=== PATIENT | male | born 1960 | race Caucasian/White ===

== ENCOUNTER → 2017-11-12 07:04 | Outpatient (CLI) | payer OTHER, SELFPAY ==
[2017-11-12 10:45] LABS: AST(SGOT) 18 U/L (15-37); Alanine Aminotransfer ALT/SGPT 30 U/L (16-61); Albumin, Serum 3.6 g/dL (3.2-5.0); Alkaline Phosphatase 56 U/L (45-117); Bilirubin, Direct 0.14 mg/dL (0.00-0.30); Cholesterol 119 mg/dL (200); Globulin 3.5 g/dL (2.2-4.2); High Density Lipoprotein 34 mg/dL; Protein, Total 7.1 g/dL (6.4-8.2); Triglycerides 126 mg/dL; Very Low Density Lipoprotein 25 mg/dL (5-40)
== END ==
PROVIDERS: Family Provider Family Medicine; PCP Family Medicine; Visit Provider Physician Assistant Medical
DX: E78.5 Hyperlipidemia, unspecified (principal); Z79.899 Other long term (current) drug therapy
CPT/HCPCS: 36415; 80061; 80076

== ENCOUNTER → 2018-11-24 16:30 | Outpatient (CLI) | payer OTHER, SELFPAY ==
[2018-11-24 09:58] VITALS: BMI 27.0
[2018-11-24 17:45] LABS: AST(SGOT) 23 U/L (15-37); Alanine Aminotransfer ALT/SGPT 27 U/L (16-61); Albumin, Serum 3.8 g/dL (3.2-5.0); Alkaline Phosphatase 54 U/L (45-117); Bilirubin, Direct 0.13 mg/dL (0.00-0.30); Cholesterol 121 mg/dL (200); Globulin 3.4 g/dL (2.2-4.2); High Density Lipoprotein 30 mg/dL; Protein, Total 7.2 g/dL (6.4-8.2); Triglycerides 260 mg/dL; Very Low Density Lipoprotein 52 mg/dL (5-40)
== END ==
PROVIDERS: Family Provider Family Medicine; PCP Family Medicine; Referring Provider Internal Medicine Cardiovascular Disease; Visit Provider Internal Medicine Cardiovascular Disease
DX: I25.10 Atherosclerotic heart disease of native coronary artery without angina pectoris (principal); I25.2 Old myocardial infarction; I10 Essential (primary) hypertension; E78.5 Hyperlipidemia, unspecified; Z95.5 Presence of coronary angioplasty implant and graft
CPT/HCPCS: 36415; 80061; 80076

== ENCOUNTER → 2018-12-09 06:21 | Outpatient (CLI) | payer OTHER, SELFPAY ==
[2018-11-24 09:58] VITALS: BMI 27.0
--- NOTE | 2018-12-09 17:13 | STRESSREP ---
Stress Test Report Pharmacologic myocardial perfusion stress test. 58-year-old man with a history of chest pain. Resting EKG demonstrates normal sinus rhythm with a rate of 57 bpm normal intervals are noted resting blood pressure 122/82 mmHg. Medications: Aspirin, Plavix, lisinopril, metoprolol. The patient exercised according to regular Jordon protocol for total duration of 5 minutes and 30 seconds the maximum heart rate attained 136 bpm which was 85% of maximum predicted heart rate the maximum workload was 7 metabolic equivalents. At rest there were no ST or T wave changes noted suggest ischemia peak exercise upsloping ST changes only were noted with no meet the criteria for ischemia. No clinical angina was noted. The resting blood pressures 122/82 with a peak blood pressure 164/72 mmHg. The test was terminated due to leg fatigue. Myocardial perfusion protocol per 14.1 mCi of technetium 99m sestamibi was injected at rest. The patient exercised according to regular Jordon protocol for 7 metabolic equivalents at peak exercise 44.3 mCi of technetium 99m sestamibi was injected stress images were obtained stress and rest images were reconstructed in comparing the short axis vertical and horizontal long axis. Gated images were also obtained Perfusion SPECT analysis: Review of the stress images demonstrate normal uptake of tracer noted in all areas of myocardium. The rest images similar demonstrate normal uptake of tracer noted in all rest myocardium. No evidence of reversibility is noted suggest ischemia. Gated SPECT analysis: The gated ejection fraction is noted to be 58%. Conclusion: Normal exercise myocardial perfusion stress test at a moderate workload. Preserved ejection fraction.
== END ==
PROVIDERS: Family Provider Family Medicine; PCP Family Medicine; Referring Provider Internal Medicine Cardiovascular Disease; Visit Provider Internal Medicine Cardiovascular Disease
DX: I25.10 Atherosclerotic heart disease of native coronary artery without angina pectoris (principal); E78.00 Pure hypercholesterolemia, unspecified; Z95.5 Presence of coronary angioplasty implant and graft
CPT/HCPCS: 78452; 93017; A9500; A4216

== ENCOUNTER → 2019-03-01 10:14 | Outpatient (CLI) | payer OTHER, SELFPAY ==
[2018-11-24 09:58] VITALS: BMI 27.0
== END ==
PROVIDERS: Family Provider Family Medicine; PCP Family Medicine; Referring Provider Dermatology; Visit Provider Dermatology
DX: L92.3 Foreign body granuloma of the skin and subcutaneous tissue (principal)
CPT/HCPCS: 87070; 87205

== ENCOUNTER → 2019-11-25 16:22 | Outpatient (CLI) | payer OTHER, SELFPAY ==
[2019-11-25 15:53] VITALS: BMI 27.7
[2019-11-25 17:56] LABS: AST(SGOT) 22 U/L (15-37); Alanine Aminotransfer ALT/SGPT 26 U/L (16-61); Albumin, Serum 4.1 g/dL (3.2-5.0); Alkaline Phosphatase 62 U/L (45-117); Anion Gap 7 (5-15); BUN 14 mg/dL (7-18); Bilirubin, Direct 0.14 mg/dL (0.00-0.30); Calcium,Total 9.3 mg/dL (8.5-10.1); Chloride 103 mmol/L (98-107); Cholesterol 110 mg/dL (200); Creatinine, Serum 1.17 mg/dL (0.70-1.30); EST Glomerular Filtration Rate 67 mL/min (>60); Est Glom Filt Rate - Afr Amer 81 mL/min (>60); Globulin 3.5 g/dL (2.2-4.2); Glucose 87 mg/dL (74-106); High Density Lipoprotein 31 mg/dL; Magnesium 2.1 mg/dL (1.6-2.6); Potassium 3.8 mmol/L (3.5-5.1); Protein, Total 7.6 g/dL (6.4-8.2); Sodium Level 135 mmol/L (136-145); Triglycerides 190 mg/dL; Very Low Density Lipoprotein 38 mg/dL (5-40)
== END ==
PROVIDERS: Referring Provider Internal Medicine Cardiovascular Disease; Visit Provider Internal Medicine Cardiovascular Disease
DX: E78.5 Hyperlipidemia, unspecified (principal); I10 Essential (primary) hypertension; I25.2 Old myocardial infarction; Z95.5 Presence of coronary angioplasty implant and graft; I25.10 Atherosclerotic heart disease of native coronary artery without angina pectoris
CPT/HCPCS: 36415; 80048; 80061; 80076; 83735

== ENCOUNTER → 2020-07-11 08:35 | Outpatient (CLI) | payer OTHER, SELFPAY ==
[2020-07-11 10:17] LABS: Absolute Lymphocyte Count 2.27 X10^3/uL (0.83-4.51); Absolute Neutrophil Count 5.4 X10^3/uL (2.0-7.7); Basophil# 0.07 X10^3/uL; Basophil% 0.8 % (0-1); Eosinophil# 0.21 X10^3/uL; Eosinophils% 2.4 % (0-5); Hematocrit 46.4 % (40-54); Hemoglobin 15.3 g/dL (13.0-16.5); Lymphocyte # 2.27 X10^3/ul (4.0); Lymphocyte % 26.5 % (19-41); Mean Corpuscular Hgb 31.4 pg (27.0-32.0); Mean Corpuscular Volume 95.1 fL (80-94); Mean Platelet Vol. 10.6 fl (6.2-12.0); Monocyte# 0.58 X10^3/uL; Monocyte% 6.8 % (0-10); NRBC Flagged by Analyzer 0 % (0-5); Neutrophil # 5.42 X10^3/uL (2.7-7.7); Neutrophil % 63.2 % (47-70); Platelet Count 228 K/mm3 (150-450); RBC Distribution Width CV 12.3 % (11.6-14.6); RBC Distribution Width SD 43.1 fl (35.1-43.9); Red Blood Count 4.88 M/mm3 (4.6-6.2); White Blood Count 8.6 K/mm3 (4.4-11.0)
[2020-07-11 10:37] LABS: Vitamin B12 320 pg/mL (211-911)
[2020-07-11 10:42] LABS: ALB/GLOB Ratio 0.9 RATIO (0.9-2.4); AST(SGOT) 17 U/L (15-37); Alanine Aminotransfer ALT/SGPT 24 U/L (16-61); Albumin, Serum 3.4 g/dL (3.2-5.0); Alkaline Phosphatase 59 U/L (45-117); Anion Gap 6 (5-15); BUN 17 mg/dL (7-18); BUN/Creat Ratio 14.2 RATIO (10-20); Calcium,Total 8.7 mg/dL (8.5-10.1); Chloride 105 mmol/L (98-107); Cholesterol 102 mg/dL (200); EST Glomerular Filtration Rate 65 mL/min (>60); Est Glom Filt Rate - Afr Amer 79 mL/min (>60); Globulin 3.8 g/dL (2.2-4.2); Glucose 98 mg/dL (74-106); High Density Lipoprotein 35 mg/dL; Potassium 3.8 mmol/L (3.5-5.1); Protein, Total 7.2 g/dL (6.4-8.2); Sodium Level 137 mmol/L (136-145); Thyroid Stim Hormone (TSH) 2.36 uIU/mL (0.358-3.74); Triglycerides 76 mg/dL; Very Low Density Lipoprotein 15 mg/dL (5-40)
== END ==
PROVIDERS: PCP Family Medicine; Referring Provider Family Medicine; Visit Provider Family Medicine
DX: E78.00 Pure hypercholesterolemia, unspecified (principal); L02.31 Cutaneous abscess of buttock; R53.83 Other fatigue
CPT/HCPCS: 36415; 80053; 80061; 82306; 82607; 84443; 85025; 87070; 87075; 87186; 87205

== ENCOUNTER → 2021-03-06 14:49 | Outpatient (CLI) | payer OTHER, SELFPAY ==
--- NOTE | 2021-03-06 14:55 | ECHOD_ITS ---
Version 2 Reason For Study: HTN Procedure This was a 2D Doppler, Color Flow transthoracic echocardiogram. Exam performed in department. Left Ventricle Normal LV size. Left ventricular systolic function is normal. The estimated ejection fraction is 60 %. Stage 1 diastolic dysfunction. No regional wall motion abnormalities noted. Right Ventricle Normal RV size. Normal systolic function. Atria Normal left atrium. Normal right atrium. Mitral Valve Normal mitral valve. Tricuspid Valve Normal tricuspid valve. Aortic Valve Normal aortic valve. Trisinus/trileaflet aortic valve. Mild (1+) aortic valve insufficiency. Pulmonic Valve Normal pulmonic valve. Great Vessels Normal aortic root. The pulmonary artery is normal size. Normal inferior vena cava. Pericardium/Pleural No pericardial effusion. MMode/2D Measurements & Calculations LVIDd: 4.4 cm IVSd: 1.2 cm LA dimension: 3.0 cm LVIDs: 3.2 cm LVPWd: 1.3 cm FS: 26.5 % LAV(MOD-bp): 55.8 ml LA A4 area: 18.0 cm2 RA A4 area: 20.7 cm2 LAV(MOD-bp) Indexed: 23.7 ml/m2 LAV(MOD-sp2): 59.4 ml LAV(MOD-sp4): 47.7 ml Time Measurements MV dec time: 0.48 sec Doppler Measurements & Calculations MV E max alden: 47.9 cm/sec Lat Peak E' Alden: 6.8 cm/sec Med Peak E' Alden: 5.4 cm/sec MV A max alden: 78.9 cm/sec E/E' lat: 7.0 E/E' med: 8.9 MV E/A: 0.61 MV V2 max: 69.7 cm/sec MV P1/2t max alden: 63.3 cm/sec Ao V2 max: 179.0 cm/sec MV max P.9 mmHg MV P1/2t: 87.5 msec Ao max P.8 mmHg MV V2 mean: 38.2 cm/sec MV dec slope: 212.0 cm/sec2 MV mean P.70 mmHg MVA(P1/2t): 2.5 cm2 MV V2 VTI: 19.9 cm AI max alden: 478.8 cm/sec LV V1 max: 102.0 cm/sec PA V2 max: 83.8 cm/sec AI max P.8 mmHg LV V1 max P.2 mmHg AI dec slope: 279.1 cm/sec2 AI P1/2t: 502.4 msec ECHO/Echo Complete Interpretation Summary Normal LV size. Left ventricular systolic function is normal. The estimated ejection fraction is 60 %. Stage 1 diastolic dysfunction. Structurally normal valves. Ordering Physician: Caden Caro Referring Physician: Ha Workman Performed By: David Tristan RCS
== END ==
PROVIDERS: PCP Family Medicine; Referring Provider Internal Medicine Cardiovascular Disease; Visit Provider Internal Medicine Cardiovascular Disease
DX: I10 Essential (primary) hypertension (principal)
CPT/HCPCS: 93306

== ENCOUNTER → 2021-03-09 07:06 | Outpatient (CLI) | payer OTHER, SELFPAY ==
[2021-03-09 10:24] LABS: AST(SGOT) 24 U/L (15-37); Alanine Aminotransfer ALT/SGPT 30 U/L (16-61); Albumin, Serum 3.6 g/dL (3.2-5.0); Alkaline Phosphatase 59 U/L (45-117); Bilirubin, Direct 0.16 mg/dL (0.00-0.30); Cholesterol 111 mg/dL (200); Globulin 3.8 g/dL (2.2-4.2); High Density Lipoprotein 37 mg/dL; Protein, Total 7.4 g/dL (6.4-8.2); Triglycerides 93 mg/dL; Very Low Density Lipoprotein 19 mg/dL (5-40)
== END ==
PROVIDERS: PCP Family Medicine; Referring Provider Internal Medicine Cardiovascular Disease; Visit Provider Internal Medicine Cardiovascular Disease
DX: E78.00 Pure hypercholesterolemia, unspecified (principal)
CPT/HCPCS: 36415; 80061; 80076

== ENCOUNTER → 2021-11-13 | Outpatient (CLI) | payer BC, SELFPAY | END | disposition home or self-care (01) | LOC: LABSPEC 15:23 | PROVIDERS: PCP Family Medicine; Visit Provider Physician Assistant | DX: L72.3 Sebaceous cyst (principal); L08.9 Local infection of the skin and subcutaneous tissue, unspecified | CPT/HCPCS: 87070; 87075; 87077; 87186; 87205 ==

== ENCOUNTER → 2023-09-09 | Outpatient (CLI) | payer BC, SELFPAY ==
--- NOTE | 2023-09-09 15:03 | RAD_ITS ---
STUDY: X-RAY - RIGHT KNEE REASON FOR EXAM: Male, 63 years old. Right knee pain. TECHNIQUE: 4 views of the right knee. COMPARISON: None. FINDINGS: Normal visualized distal femur. Normal visualized proximal tibia and fibula. Normal proximal tibiofibular articulation. There is no demonstrated fracture. Normal medial femorotibial compartment. Normal lateral femorotibial compartment. Normal patellofemoral articulation. There are atherosclerotic calcifications. RAD/Knee 4 or More Views IMPRESSION: No demonstrated fracture. Electronically Signed: Benitez Farrell MD at 15:48 EDT ,
== END | disposition home or self-care (01) ==
LOC: MTRAD 14:58
PROVIDERS: PCP Family Medicine; Referring Provider Family Medicine; Visit Provider Family Medicine
DX: M25.561 Pain in right knee (principal)
CPT/HCPCS: 73564

== ENCOUNTER → 2024-01-20 | Outpatient (CLI) | payer BC, SELFPAY | END | disposition home or self-care (01) | LOC: LABSPEC 15:14 | PROVIDERS: Referring Provider Physician Assistant; Visit Provider Physician Assistant | DX: L72.3 Sebaceous cyst (principal); L08.9 Local infection of the skin and subcutaneous tissue, unspecified | CPT/HCPCS: 87070; 87075; 87077; 87186; 87205 ==

== ENCOUNTER → 2024-02-26 | Outpatient (CLI) | payer BC, SELFPAY ==
[2024-02-26 11:56] LABS: AST(SGOT) 17 U/L (15-37); Alanine Aminotransfer ALT/SGPT 25 U/L (16-61); Albumin, Serum 3.6 g/dL (3.2-5.0); Alkaline Phosphatase 70 U/L (45-117); Bilirubin, Direct 0.16 mg/dL (0.00-0.30); Cholesterol 132 mg/dL (200); Globulin 3.5 g/dL (2.2-4.2); High Density Lipoprotein 34 mg/dL; Protein, Total 7.1 g/dL (6.4-8.2); Triglycerides 122 mg/dL; Very Low Density Lipoprotein 24 mg/dL (5-40)
== END | disposition home or self-care (01) ==
PROVIDERS: Referring Provider Internal Medicine Cardiovascular Disease; Visit Provider Internal Medicine Cardiovascular Disease
DX: E78.5 Hyperlipidemia, unspecified (principal)
CPT/HCPCS: 36415; 80061; 80076

== ENCOUNTER 2024-06-01 06:22 | Day surgery (SDC) | payer BC, SELFPAY ==
--- NOTE | 2024-05-28 16:51 | PAT.ANESEVAL ---
Pre-Assessment Diagnosis/Proposed Procedure Planned Operative Procedure(s): EGD, COLONOSCOPY Anesthesia History Anesthesia History - veterinary toxicologist: Anesthesia History - veterinary toxicologist Hx Hospitalization No 05/28/24 15:31 Any Problems With Anesthesia No 05/28/24 15:31 Cholinesterase deficiency No 05/28/24 15:31 You/Your Family Experience No 05/28/24 15:31 fever (hyperthermia) with Relationship Recent Exposure to Contagious Disease Does patient have nerve No 05/28/24 15:31 stimulator Patient instructed to have device shut off --Does patient have Pacemaker or ICD? When Was Last Pacemaker Check QUESTION #4 FULL TEXT: You/Your Family Experience fever (hyperthermia) with Anesthesia Last Oral Intake Last Oral intake: Last Oral Intake NPO since Meds taken in AM with sips of water? Meds patient instructed to take am of surgery PONV PONV - veterinary toxicologist: PONV - veterinary toxicologist Female No 05/28/24 15:31 HX of Motion Sickness No 05/28/24 15:31 HX of N/V After Surgery No 05/28/24 15:31 Non-Smoker No 05/28/24 15:31 Duration of Surgery greater No 05/28/24 15:31 than 60 minutes Number of Risk Factors PONV Score Height & Weight Height & Weight: Anesthesia: Height & Weight Height 6 ft 5 in 03/31/24 13:45 Respiratory Assessment Respiratory Assessment - veterinary toxicologist: Respiratory Tract Infection Hx - veterinary toxicologist Hx Respiratory Tract Infection No 05/28/24 15:31 STOP Sleep Apnea STOP Sleep Apnea - veterinary toxicologist: STOP Sleep Apnea - veterinary toxicologist Hx Hypertension Yes: CONTROLLED WITH MEDS 05/28/24 15:31 Hx Sleep Apnea No 05/28/24 15:31 CPAP BIPAP Do you snore loudly (louder No 05/28/24 15:31 than talking or can be heard Do you often feel tired/ No 05/28/24 15:31 fatigued/ sleepy during daytime? Has anyone observed you stop No 05/28/24 15:31 breathing during sleep? STOP Results Negative 05/28/24 15:31 QUESTION #5 FULL TEXT : Do you snore loudly (louder than talking or can be heard through closed doors)? 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 Specify any problems Hx of Preganancy in last 3 N/A 05/28/24 15:31 Months Nurse Filling Out Transfusion [email or web address] 05/28/24 15:31 & Questions: Date: 05/28/24 05/28/24 15:31 Time: 15:34 05/28/24 15:31 Patient unable to answer at this time (ie. confused, unrespo /Reproduction History /Reproductive History - veterinary toxicologist: /Reproductive Hx- veterinary toxicologist Hx Now Gestational Age (in weeks): EDC: Hx Hx Para Hx Section SAB PFSH Medical History (Updated 05/28/24 @ 15:38 by Didier Pascal) Wears hearing aid Wears contact lenses Gastric reflux Smoker History of stress test History of echocardiogram Cardiology follow-up encounter Infected sebaceous cyst Multiple premature ventricular complexes Boil of buttock 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 (09/28/11) Hyperlipidemia Essential (primary) hypertension Atherosclerosis of [place] coronary artery of [place] heart without angina pectoris Home Medications ?Medication ?Instructions ?Recorded ?Last Taken ?Type aspirin 81 mg tablet,delayed 81 mg PO QDAY 11/12/17 05/27/24 History release (Adult Aspirin Regimen) nitroglycerin 0.4 mg sublingual 0.4 mg sublingual Q5-15M PRN chest 11/12/17 Unknown History tablet pain pravastatin 40 mg tablet 40 mg PO DAILY #90 tabs 01/27/24 Unknown Rx lisinopril 40 mg tablet 40 mg PO DAILY #90 TABLETS 03/16/24 Unknown Rx esomeprazole magnesium 20 mg 20 mg PO DAILY 05/28/24 Unknown History capsule,delayed release (Nexium) Allergy/AdvReac Type Severity Reaction Status Date / Time Penicillins Allergy Unknown Verified 05/28/24 15:29 Family History Father Hypertension Mother Hypertension Colon cancer Surgical History Cyst on ear History of coronary artery stent placement (09/28/11) Social History Smoking Status: Current every day smoker tobacco type: cigarettes second hand exposure: No alcohol intake: never substance use type: does not use caffeine: Yes Type: carbonated beverages Number of servings: 1 what type of physical activity do you participate in: none frequency: does not exercise Audit: Pertinent Findings Pertinent Findings EKG Perinent findings: November 25, 2019. Sinus rhythm. Frequent multiform ectopic ventricular beats. Stress test pertinent findings: 12/09/2018. Ejection fraction 58%. No evidence of reversibility to suggest ischemia. Echo (EF%) pertinent findings: March 06, 2021. Ejection fraction of 60%. No aortic stenosis noted. Consult pertinent findings: 03/16/2024. Dr. Caro. 1. Coronary artery stent placement in the proximal first diagonal. He is most recent stress test in 2019 was negative for ischemia. He appears stable at this time. He will continue aspirin Plavix and pravastatin. 2. [id number] at this time. Increase lisinopril to 40 mg a day. Recommendation Anesthesia Recommendation Anesthesia recommendation: OPTIMIZED for anesthesia
[2024-06-01] VITALS (8 sets, daily range): BP systolic 90–150; BP diastolic 64–101; PULSE 72–94; RESP 16; TEMP 36.6–37.2; O2SAT 92–100; BMI 26.9
--- NOTE | 2024-06-01 06:55 | HP.PCM_ITS ---
History and Physical Date of Admission: 06/01/24 Intake Vital Signs 03/16/2415:55 03/31/2413:45 Height 6 ft 5 in 6 ft 5 in Weight: 231 lb 233 lb BMI 27.3 27.6 BP 150/87 H 143/83 H Blood Pressure Location Lt brachial Rt brachial Position Sitting Sitting Respiration 16 16 Pulse 76 Pulse Source Monitor Intake Visit Reasons: POSITIVE COLOGUARD Chief Complaint: positive cologuard Environmental Adviser Required: No Is patient in pain?: No Allergies Penicillins Allergy (Verified 03/31/24 13:46) Unknown Medications ?Medication ?Instructions ?Recorded ?Confirmed ?Type aspirin 81 mg tablet,delayed 81 mg PO QDAY 11/12/17 03/31/24 History release (Adult Aspirin Regimen) nitroglycerin 0.4 mg sublingual 0.4 mg sublingual Q5-15M PRN 11/12/17 03/31/24 History tablet pravastatin 40 mg tablet 40 mg PO DAILY #90 tabs 01/27/24 03/31/24 Rx lisinopril 40 mg tablet 40 mg PO DAILY #90 TABLETS 03/16/24 03/31/24 Rx Have you fallen in the past year?: No PFSH Medical History Infected sebaceous cyst Multiple premature ventricular complexes Boil of buttock 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 (09/28/11) Hyperlipidemia Essential (primary) hypertension Atherosclerosis of [place] coronary artery of [place] heart without angina pectoris Surgical History Cyst on ear History of coronary artery stent placement (09/28/11) Family History Father HypertensionMother Hypertension Colon cancer Social History Smoking Status: Current every day smoker tobacco type: cigarettes second hand exposure: No alcohol intake: never substance use type: does not use caffeine: Yes Type: carbonated beverages Number of servings: 1 what type of physical activity do you participate in: none frequency: does not exercise HPI HPI HPI: Patient is a 63-year-old male here for positive Cologuard. He has a family history of colon cancer in his mother in her 80s. He denies any abdominal pain or blood in the stool. He is never had a colonoscopy in the past. ROS General General: No weight change, appetite, fatigue, colon cancer, breast cancer or weakness HEENT HEENT: No difficulty swallowing, eye injury, eye surgery, swollen glands or hoarseness Endo Endocrine: No thyroid disease, diabetes mellitus, thyroid cancer, Hair loss, heat intolerance or cold intolerance Skin Skin: No rash or changing moles Musc Musculoskeletal: Yes arthritis; No back problems, rheumatoid arthritis, gout or joint pain Cardio Cardiovascular: Yes murmur, high blood pressure, heart attack and heart stent; No pacemaker, heart disease, atrial fibrillation, palpitations, shortness of breat with exertion or chest pain Psych Psychiatric: No depression, anxiety or hearing voices Resp Respiratory: No shortness of breath, No sleep apnea, No cough, No COPD, No asthma, No emphysema and No wheezing Gastro Gastrointestinal: No abdominal pain, No nausea or vomiting, No diarrhea, No constipation, No blood in stool, No acid reflux, No hemorrhoids, No ulcers, No gallbladder problem and No black,tarry stools Luis Felipe Hematologic: Yes blood thinners, No blood disorders, No bleeding, No anemia and No blood clots Neuro Neurologic: No numbness, No tingling and No weakness Exam Const General: cooperative Orientation: alert and oriented x3 HENMT Head: normal to inspection Neck Neck: normal visual inspection and full ROM Chest Chest palpation & inspection: normal inspection of the chest Resp Effort & Inspection: normal respiratory effort Auscultation: clear to auscultation bilaterally Cardio Rate: regular rate Rhythm: regular rhythm GI Inspection: non-distended Palpation: soft and nontender Skin General: no rashes or lesions noted Neuro General: patient alert and patient oriented x3 Extrem General: full ROM Psych Appearance: grossly normal Mental Status: mental status grossly normal Assessment and Plan Assessment and Plan (1) Positive colorectal cancer screening using Cologuard test: Status: Acute Plan: I explained endoscopy in detail to the patient. I explained the risks including but not limited to stroke or heart attack with anesthesia, perforation of the GI tract, bleeding, infection. I explained that any of these could necessitate further emergency surgery. The patient understands and all questions were answered sufficiently. The patient wishes to proceed with procedure. Ramu Castorena MD Pager: [facility] [address] [place] [address] [address] [place] [address] Office: I have reviewed the H&P and reexamined the patient and there are no changes from prior exam.
--- NOTE | 2024-06-01 07:13 | PRE.ANES_ITS ---
ASA Classification* ASA Classification ASA Classification: 2 Assessment & Plan Anesthesia* Anesthesia Assessment Anesthesia Assessment: Discussed sedation and/or anesthesia options, risks, benefits, and alternatives with patient/parents/legal guardian/POA. Questions invited. The patient/parents/legal guardian/POA seems to understand and agrees to proceed with anesthesia plan. Reviewed the physical assessment, medical history, allergy history and patient home medications list prior to surgery/procedure/anesthetic and documented any changes. Performed airway and anesthesia risk assessments. Anesthesia Type Anesthesia Type: MAC History Source History Obtained from:: Patient and Chart Anesthesia Focused Assessment* Temperature: 98 F Pulse Rate: 94 Blood Pressure: 150/101 Respiratory Rate: 16 Pulse Ox: 100 Oxygen Delivery Method: Room Air Airway Assessment Mouth opens: >3 cm Mallampati Score: II Teeth Condition: Caps/Crowns (Patient has #8 #9. They Are Tight.) Neck Range of motion (ROM): Full ROM Focused Labs Anesthesia Preop lab: CBC WBC 8.6 K/mm3 (4.4-11.0) 07/11/20 08:36 RBC 4.88 M/mm3 (4.6-6.2) 07/11/20 08:36 Hgb 15.3 g/dL (13.0-16.5) 07/11/20 08:36 Hct 46.4 % (40-54) 07/11/20 08:36 Plt Count 228 K/mm3 (150-450) 07/11/20 08:36 CHEMISTRY Potassium 3.8 mmol/L (3.5-5.1) 07/11/20 08:36 Sodium 137 mmol/L (136-145) 07/11/20 08:36 Magnesium 2.1 mg/dL (1.6-2.6) 11/25/19 16:28 BUN 17 mg/dL (7-18) 07/11/20 08:36 Creatinine 1.20 mg/dL (0.70-1.30) 07/11/20 08:36 Glucose 98 mg/dL (74-106) 07/11/20 08:36 TSH 2.36 uIU/mL (0.358-3.74) 07/11/20 08:36 COAG Pre-Assessment Diagnosis/Proposed Procedure Planned Operative Procedure(s): EGD, COLONOSCOPY Anesthesia History 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 When Was Last Pacemaker Check QUESTION #4 FULL TEXT: You/Your Family Experience fever (hyperthermia) with Anesthesia Last Oral Intake Last Oral intake: Last Oral Intake NPO since 00:00 06/01/24 06:45 Meds taken in AM with sips of No 06/01/24 06:45 water? Meds patient instructed to take am of surgery PONV PONV - supervisor instrument mechanics: PONV - supervisor instrument mechanics Female No 05/28/24 15:31 HX of Motion Sickness No 05/28/24 15:31 HX of N/V After Surgery No 05/28/24 15:31 Non-Smoker No 05/28/24 15:31 Duration of Surgery greater No 05/28/24 15:31 than 60 minutes Number of Risk Factors PONV Score Height & Weight Height & Weight: Anesthesia: Height & Weight Height 6 ft 5 in 06/01/24 06:45 Weight: 103 kg 06/01/24 06:45 Body Mass Index (BMI) 26.9 06/01/24 06:45 Respiratory Assessment Respiratory Assessment - supervisor instrument mechanics: Respiratory Tract Infection Hx - supervisor instrument mechanics Hx Respiratory Tract Infection No 05/28/24 15:31 STOP Sleep Apnea STOP Sleep Apnea - supervisor instrument mechanics: STOP Sleep Apnea - supervisor instrument mechanics Hx Hypertension Yes: CONTROLLED WITH MEDS 05/28/24 15:31 Hx Sleep Apnea No 05/28/24 15:31 CPAP BIPAP Do you snore loudly (louder No 05/28/24 15:31 than talking or can be heard Do you often feel tired/ No 05/28/24 15:31 fatigued/ sleepy during daytime? Has anyone observed you stop No 05/28/24 15:31 breathing during sleep? STOP Results Negative 05/28/24 15:31 QUESTION #5 FULL TEXT : Do you snore loudly (louder than talking or can be heard through closed doors)? 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 Specify any problems Hx of Preganancy in last 3 N/A 05/28/24 15:31 Months Nurse Filling Out Transfusion [email or web address] 05/28/24 15:31 & Questions: Date: 05/28/24 05/28/24 15:31 Time: 15:34 05/28/24 15:31 Patient unable to answer at this time (ie. confused, unrespo /Reproduction History /Reproductive History - supervisor instrument mechanics: /Reproductive Hx- supervisor instrument mechanics Hx Now Gestational Age (in weeks): EDC: Hx Hx Para Hx Section SAB PFSH Medical History Wears hearing aid Wears contact lenses Gastric reflux Smoker History of stress test History of echocardiogram Cardiology follow-up encounter Infected sebaceous cyst Multiple premature ventricular complexes Boil of buttock 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 (09/28/11) Hyperlipidemia Essential (primary) hypertension Atherosclerosis of [place] coronary artery of [place] heart without angina pectoris Home Medications ?Medication ?Instructions ?Recorded ?Last Taken ?Type aspirin 81 mg tablet,delayed 81 mg PO QDAY 11/12/17 05/27/24 History release (Adult Aspirin Regimen) nitroglycerin 0.4 mg sublingual 0.4 mg sublingual Q5-15M PRN chest 11/12/17 Unknown History tablet pain pravastatin 40 mg tablet 40 mg PO DAILY #90 tabs 01/27/24 Unknown Rx lisinopril 40 mg tablet 40 mg PO DAILY #90 TABLETS 03/16/24 Unknown Rx esomeprazole magnesium 20 mg 20 mg PO DAILY 05/28/24 Unknown History capsule,delayed release (Nexium) Allergy/AdvReac Type Severity Reaction Status Date / Time Penicillins Allergy Unknown Verified 06/01/24 06:44 Family History Father Hypertension Mother Hypertension Colon cancer Surgical History Cyst on ear History of coronary artery stent placement (09/28/11) Social History Smoking Status: Current every day smoker tobacco type: cigarettes second hand exposure: No alcohol intake: never substance use type: does not use caffeine: Yes Type: carbonated beverages Number of servings: 1 what type of physical activity do you participate in: none frequency: does not exercise Review of Systems (Anesthesia) ROS Narrative System reviewed and no additional complaints, except as documented.
--- NOTE | 2024-06-01 07:30 | COLBX_PTH ---
PATIENT: ELMER SAAVEDRA LOC: EN U#:[id number] AGE/SX: 63/M ROOM: RE06/01/[address]: Dr. Ramu Castorena MD : 1960 BED: DIS: 06/01/2024 SPEC #: [id number] RECD: 06/01/24 10:42 STATUS: DAVY RIVAS #: [id number] JUSTIN: 06/01/24 07:[address]: Ramu Castorena DEPT: SURGICAL PATHOLOGY RECD BY: Terri Humphrey ENTERED: 06/01/24 11:48 SP TYPE: COLON BX OTHR DR: Sanam Diaz MD Tissues: A - Cecum, NOS B - Descending colon C - Sigmoid colon biopsy Procedures: Surgery Specimen Level IV HEADER OPERATION: Colonoscopy with polypectomy, EGD PRE-OP DIAGNOSIS: Positive colorectal cancer screening using Cologaurd test TISSUE SUBMITTED: A- Cecal polyp x3, B- Descending polyp, C- Sigmoid polyp MICROSCOPIC DIAGNOSIS A. Cecal polyp x3, polypectomy: Fragments of tubular adenoma. Fragments of fecal material. B. Descending colon polyp, polypectomy: Fragments of tubular adenoma. Fragments of fecal material. C. Sigmoid polyp, polypectomy: Benign mucosal polyp with focal areas of old hemorrhage. 06/02/2024 MICROSCOPIC DESCRIPTION Slides are reviewed. GROSS DESCRIPTION A. Received in fixative is one container labeled with the patient's name and designated Cecal polyp x3. The specimen consists of multiple irregular fragments of light [place]gara soft tissue that in aggregate measure 1.5 x 0.3 x 0.3 cm. The specimen is totally submitted in one cassette. B. Received in fixative is one container labeled with the patient's name and designated Descending polyp. The specimen consists of multiple irregular fragments of light [place] soft tissue that in aggregate measure 0.9 x 0.4 x 0.2 cm. The specimen is totally submitted in one cassette. C. Received in fixative is one container labeled with the patient's name and designated Sigmoid polyp. The specimen consists of one irregular fragment of light [place] soft tissue that measures 0.5 x 0.4 x 0.3 cm. The specimen is totally submitted in one cassette. 06/01/2024 TC:1 CPT:51993i9
--- NOTE | 2024-06-01 08:04 | OP.CCLET_ITS ---
06/01/2024 Sanam Diaz Md Re : Upper GI endoscopy procedure for Chuck Kemp Dear Emily This procedure was performed on Saturday, June 01, 2024. My impressions and recommendations are as follows: Impressions : - Normal esophagus. - Normal stomach. - Normal examined duodenum. - No specimens collected. Recommendations : - Discharge patient to home. - Resume previous diet. - Continue present medications. - Refer to an ENT specialist at appointment to be scheduled. My findings are described in the full procedure note, which is enclosed. If I can be of further assistance, please feel free to contact me at Doctor phone number(s): , Work: . Sincerely, Ramu Castorena MD 06/01/2024 8:04:06 AM This report has been signed electronically.
--- NOTE | 2024-06-01 08:04 | OP.EGD_ITS ---
Patient Name: Chuck Kemp Procedure Date: 06/01/2024 7:12 AM Date of : 1960 Age: 63 Procedure: Upper GI endoscopy Indications: Gastro-esophageal reflux disease Providers: Ramu Castorena MD Medicines: Propofol per Anesthesia Patient Profile: This is a 63 year old male. Refer to note in patient chart for documentation of history and physical. Complications: No immediate complications. Procedure: Pre-Anesthesia Assessment: - Prior to the procedure, a History and Physical was performed, and patient medications and allergies were reviewed. The patient's tolerance of previous anesthesia was also reviewed. The risks and benefits of the procedure and the sedation options and risks were discussed with the patient. All questions were answered, and informed consent was obtained. Prior Anticoagulants: The patient has taken no anticoagulant or antiplatelet agents. After reviewing the risks and benefits, the patient was deemed in satisfactory condition to undergo the procedure. After obtaining informed consent, the endoscope was passed under direct vision. Throughout the procedure, the patient's blood pressure, pulse, and oxygen saturations were monitored continuously. The colonoscope was introduced through the mouth, and advanced to the fourth part of duodenum. The upper GI endoscopy was accomplished without difficulty. The patient tolerated the procedure well. Scope In: 7:28:42 AM Scope Out: 7:31:58 AM Total Procedure Duration Time 0 hours 3 minutes 16 seconds Findings: The esophagus was normal. The stomach was normal. The examined duodenum was normal. 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 Impression: - Normal esophagus. - Normal stomach. - Normal examined duodenum. - No specimens collected. Recommendation: - Discharge patient to home. - Resume previous diet. - Continue present medications. - Refer to an ENT specialist at appointment to be scheduled. Procedure Code(s): --- Professional --- 67983, Esophagogastroduodenoscopy, flexible, transoral; diagnostic, including collection of specimen(s) by brushing or washing, when performed (separate procedure) Diagnosis Code(s): --- Professional --- K21.9, Gastro-esophageal reflux disease without esophagitis CPT copyright 2021 [employer]. All rights reserved. The codes documented in this report are preliminary and upon medicare interviewer review may be revised to meet current compliance requirements. Ramu Castorena MD 06/01/2024 8:04:06 AM This report has been signed electronically. Number of Addenda: 0 Note Initiated On: 06/01/2024 7:12 AM
--- NOTE | 2024-06-01 08:05 | PCM.POST.ANE ---
Anesthesia: Postop Eval I Current Vital Signs Temperature: 98.1 F Pulse Rate: 72 Blood Pressure: 95/67 Respiratory Rate: 16 Pulse Ox: 95 Oxygen Delivery Method: Room Air Assessment Airway patent: Yes Spontaneous unlabored respirations: Yes Mental status: Asleep nausea: No Vomiting: No Anesthesia Complication: No Fluid Hydration Crystalloid volume administer (ml): 60 Total IV fluid infused: 60 Progress Note Anesthesia document: Postop Eval 1 completed: Yes
--- NOTE | 2024-06-01 08:06 | OP.COLON_ITS ---
Patient Name: Chuck Kemp Procedure Date: 06/01/2024 7:32 AM Date of : 1960 Age: 63 Procedure: Colonoscopy Indications: Positive Cologuard test Providers: Ramu Castorena MD Medicines: Propofol per Anesthesia Patient Profile: This is a 63 year old male. Refer to note in patient chart for documentation of history and physical. Last Colonoscopy: none. The patient's first colonoscopy is today. Complications: No immediate complications. Estimated blood loss: Minimal. Procedure: Pre-Anesthesia Assessment: - Prior to the procedure, a History and Physical was performed, and patient medications and allergies were reviewed. The patient's tolerance of previous anesthesia was also reviewed. The risks and benefits of the procedure and the sedation options and risks were discussed with the patient. All questions were answered, and informed consent was obtained. Prior Anticoagulants: The patient has taken no anticoagulant or antiplatelet agents. After reviewing the risks and benefits, the patient was deemed in satisfactory condition to undergo the procedure. - Prior to the procedure, a History and Physical was performed, and patient medications and allergies were reviewed. The patient's tolerance of previous anesthesia was also reviewed. The risks and benefits of the procedure and the sedation options and risks were discussed with the patient. All questions were answered, and informed consent was obtained. Prior Anticoagulants: The patient has taken no anticoagulant or antiplatelet agents. After reviewing the risks and benefits, the patient was deemed in satisfactory condition to undergo the procedure. After I obtained informed consent, the scope was passed under direct vision. Throughout the procedure, the patient's blood pressure, pulse, and oxygen saturations were monitored continuously. The colonoscope was introduced through the anus and advanced to the cecum, identified by appendiceal orifice and ileocecal valve. The colonoscopy was performed without difficulty. The patient tolerated the procedure well. The quality of the bowel preparation was good. The ileocecal valve, appendiceal orifice, and rectum were photographed. Scope In: 7:33:38 AM Scope Withdrawal Time 0 hours 14 minutes 13 seconds Scope Out: 7:53:44 AM Total Procedure Duration Time 0 hours 20 minutes 6 seconds Findings: Six polyps were found in the sigmoid colon, descending colon, ascending colon and cecum. These polyps were removed with a hot snare. Resection was complete, but the polyp tissue was only partially retrieved. The exam was otherwise without abnormality on direct and retroflexion views. Impression: - Six polyps in the sigmoid colon, in the descending colon, in the ascending colon and in the cecum, removed with a hot snare. Complete resection. Partial retrieval. - The examination was otherwise normal on direct and retroflexion views. Recommendation: - Discharge patient to home. - Resume previous diet. - Continue present medications. - Await pathology results. - Repeat colonoscopy in 3 years for surveillance. Procedure Code(s): --- Professional --- 53753, Colonoscopy, flexible; with removal of tumor(s), polyp(s), or other lesion(s) by snare technique Diagnosis Code(s): --- Professional --- D12.5, Benign neoplasm of sigmoid colon D12.4, Benign neoplasm of descending colon D12.2, Benign neoplasm of ascending colon D12.0, Benign neoplasm of cecum R19.5, Other fecal abnormalities CPT copyright 2021 [employer]. All rights reserved. The codes documented in this report are preliminary and upon lead process engineer review may be revised to meet current compliance requirements. Ramu Castorena MD 06/01/2024 8:06:16 AM This report has been signed electronically. Number of Addenda: 0 Note Initiated On: 06/01/2024 7:32 AM
--- NOTE | 2024-06-01 08:06 | OP.CCLET_ITS ---
06/01/2024 Sanam Diaz Md Re : Colonoscopy procedure for Chuck Grander Emily This procedure was performed on Saturday, June 01, 2024. My impressions and recommendations are as follows: Impressions : - Six polyps in the sigmoid colon, in the descending colon, in the ascending colon and in the cecum, removed with a hot snare. Complete resection. Partial retrieval. - The examination was otherwise normal on direct and retroflexion views. Recommendations : - Discharge patient to home. - Resume previous diet. - Continue present medications. - Await pathology results. - Repeat colonoscopy in 3 years for surveillance. My findings are described in the full procedure note, which is enclosed. If I can be of further assistance, please feel free to contact me at Doctor phone number(s): , Work: . Sincerely, Ramu Castorena MD 06/01/2024 8:06:16 AM This report has been signed electronically.
--- NOTE | 2024-06-01 08:58 | PCM.POSTANE2 ---
Anesthesia Postop Eval I Sum Postop Eval Completion status Anesthesia document: Postop Eval 1 completed: Yes Anesthesia Postop Eval I Summary Anesthesia Postop Eval I Summary: Anesthesia Postop Eval I: Assessment Summary Airway patent Yes 06/01/24 08:06 [email or web address] Spontaneous unlabored Yes 06/01/24 08:06 [email or web address] respirations Mental status Asleep 06/01/24 08:06 [email or web address] nausea No 06/01/24 08:06 [email or web address] Vomiting No 06/01/24 08:06 [email or web address] Anesthesia Postop Eval I: Fluid Summary Crystalloid volume administer 60 06/01/24 08:06 [email or web address] (ml) Colloids volume administered ( ml) Blood Product volume administered (ml) Total IV fluid infused 60 06/01/24 08:06 [email or web address] Anesthesia Postop Eval I: Summary Notes Anesthesia Complication No 06/01/24 08:06 [email or web address] Anesthesia Complication Comment: Post-operative progress note Anesthesia: Postop Eval II Evaluation Mental status: Awake and Calm Pain Level: 0 nausea: No Vomiting: No Complications Anesthesia Complication: No
== END 2024-06-01 08:43 | disposition home or self-care (01) ==
LOC: EN 06:24 → AC 06:25
PROVIDERS: PCP Family Medicine; Referring Provider Family Medicine; Visit Provider Surgery
PROC: 0DJD8ZZ Inspection of Lower Intestinal Tract, Via Natural or Artificial Opening Endoscopic (ICD-10-PCS; CPT 45378; principal; 2024-06-01 07:25)
DX: D12.4 Benign neoplasm of descending colon (principal); D12.0 Benign neoplasm of cecum; K21.9 Gastro-esophageal reflux disease without esophagitis; J38.3 Other diseases of vocal cords; I25.10 Atherosclerotic heart disease of native coronary artery without angina pectoris; E78.5 Hyperlipidemia, unspecified; I10 Essential (primary) hypertension; Z80.0 Family history of malignant neoplasm of digestive organs; Z79.82 Long term (current) use of aspirin; Z79.899 Other long term (current) drug therapy; Z95.5 Presence of coronary angioplasty implant and graft
CPT/HCPCS: 45385; 43235; 88305; A4216; J2405

== ENCOUNTER 2024-06-29 10:37 | Day surgery (SDC) | payer BC, SELFPAY ==
--- NOTE | 2024-06-16 16:12 | PAT.ANESEVAL ---
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 When Was Last Pacemaker Check QUESTION #4 FULL TEXT: You/Your Family Experience fever (hyperthermia) with Anesthesia Last Oral Intake Last Oral intake: Last Oral Intake NPO since Meds taken in AM with sips of water? 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 operator Female No 06/16/24 13:39 HX of Motion Sickness No 06/16/24 13:39 HX of N/V After Surgery No 06/16/24 13:39 Non-Smoker No 06/16/24 13:39 Duration of Surgery greater No 06/16/24 13:39 than 60 minutes Number of Risk Factors PONV Score Height & Weight Height & Weight: Anesthesia: Height & Weight Height 6 ft 5 in 06/01/24 06:45 Respiratory Assessment Respiratory Assessment - bituminous distributor operator: Respiratory Tract Infection Hx - bituminous distributor operator Hx Respiratory Tract Infection No 06/16/24 13:39 STOP Sleep Apnea STOP Sleep Apnea - bituminous distributor operator: STOP Sleep Apnea - bituminous distributor operator Hx Hypertension Yes: CONTROLLED WITH MEDS 06/16/24 13:39 Hx Sleep Apnea No 06/16/24 13:39 CPAP BIPAP Do you snore loudly (louder No 06/16/24 13:39 than talking or can be heard Do you often feel tired/ No 06/16/24 13:39 fatigued/ sleepy during daytime? Has anyone observed you stop No 06/16/24 13:39 breathing during sleep? STOP Results Negative 06/16/24 13:39 QUESTION #5 FULL TEXT : Do you snore loudly (louder than talking or can be heard through closed doors)? 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 Specify any problems Hx of Preganancy in last 3 N/A 06/16/24 13:39 Months Nurse Filling Out Transfusion NBUCHER 06/16/24 13:39 & Questions: Date: 06/16/24 06/16/24 13:39 Time: 13:40 06/16/24 13:39 Patient unable to answer at this time (ie. 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/11) Hyperlipidemia Essential (primary) hypertension Atherosclerosis of unga coronary artery of unga heart without angina pectoris Home Medications ?Medication ?Instructions ?Recorded ?Last Taken ?Type aspirin 81 mg tablet,delayed 81 mg PO QDAY 11/12/17 05/27/24 History release (Adult Aspirin Regimen) nitroglycerin 0.4 mg sublingual 0.4 mg sublingual Q5-15M PRN chest 11/12/17 Unknown History tablet pain pravastatin 40 mg tablet 40 mg PO DAILY #90 tabs 01/27/24 Unknown Rx lisinopril 40 mg tablet 40 mg PO DAILY #90 TABLETS 03/16/24 Unknown Rx esomeprazole magnesium 20 mg 20 mg PO DAILY 05/28/24 Unknown History capsule,delayed release (Nexium) Allergy/AdvReac Type Severity Reaction Status Date / Time Penicillins Allergy Unknown Verified 06/16/24 13:38 Family History Father Hypertension Mother Hypertension Colon cancer Surgical History (Updated 06/16/24 @ 13:42 by Maylin Darling) History of esophagogastroduodenoscopy (EGD) History of colonoscopy Cyst on ear History of coronary artery stent placement (09/28/11) Social History Smoking Status: Current every day smoker tobacco type: cigarettes second hand exposure: No alcohol intake: never substance use type: does not use caffeine: Yes Type: carbonated beverages Number of servings: 1 what type of physical activity do you participate in: none frequency: does not exercise Audit: Pertinent Findings Pertinent Findings EKG Perinent findings: multiple PVCs from 12/05 EKG Stress test pertinent findings: Normal Echo (EF%) pertinent findings: 60% from 2019 Recommendation Anesthesia Recommendation Anesthesia recommendation: OPTIMIZED for anesthesia
--- NOTE | 2024-06-21 07:52 | EKG12_ITS ---
Test Reason : PREOP Blood Pressure : */* mmHG Vent. Rate : 71 BPM Atrial Rate : 71 BPM P-R Int : 192 ms QRS Dur : 102 ms QT Int : 416 ms P-R-T Axes : 63 61 39 degrees QTcB Int : 452 ms Normal sinus rhythm Normal ECG Confirmed by STEPHAN ELLISON, EZEQUIEL ([id number]), editorial specialist CHEKO NIETO ([id number]) on 06/21/2024 10:42:12 AM Referred By: Asael Santoyo Confirmed By: EZEQUIEL ROTHMAN MD
[2024-06-21 08:32] LABS: Hematocrit 44.5 % (40-54); Mean Corp Hgb Conc 33.7 g/dL (32-36); Mean Corpuscular Hgb 31.5 pg (27.0-32.0); Mean Corpuscular Volume 93.5 fL (80-94); Mean Platelet Vol. 10.2 fl (6.2-12.0); Platelet Count 205 K/mm3 (150-450); RBC Distribution Width SD 44.8 fl (35.1-43.9); Red Blood Count 4.76 M/mm3 (4.6-6.2); White Blood Count 6.5 K/mm3 (4.4-11.0)
[2024-06-21 09:52] LABS: Anion Gap 6 (5-15); BUN 15 mg/dL (7-18); BUN/Creat Ratio 14.3 RATIO (10-20); Chloride 108 mmol/L (98-107); Creatinine, Serum 1.05 mg/dL (0.70-1.30); EST Glomerular Filtration Rate 75 mL/min (>60); Est Glom Filt Rate - Afr Amer 91 mL/min (>60); Glucose 104 mg/dL (74-106); Sodium Level 140 mmol/L (136-145)
[2024-06-29] VITALS (8 sets, daily range): BP systolic 136–176; BP diastolic 73–93; PULSE 64–92; RESP 16–18; TEMP 36.3–36.4; O2SAT 96–100; BMI 27.9
[2024-06-29] MEDS: 0.9% Normal Saline (1000mL) 1,000 ML 15 ML IV (11:00)
--- NOTE | 2024-06-29 11:59 | PCM.PRE.AN2 ---
ASA Classification* ASA Classification ASA Classification: 2 Assessment & Plan Anesthesia* Anesthesia Assessment Anesthesia Assessment: Discussed sedation and/or anesthesia options, risks, benefits, and alternatives with patient/parents/legal guardian/POA. Questions invited. The patient/parents/legal guardian/POA seems to understand and agrees to proceed with anesthesia plan. Reviewed the physical assessment, medical history, allergy history and patient home medications list prior to surgery/procedure/anesthetic and documented any changes. Performed airway and anesthesia risk assessments. Anesthesia Type Anesthesia Type: General History Source History Obtained from:: Patient and Chart Anesthesia Focused Assessment* Temperature: 97.4 F Pulse Rate: 64 Blood Pressure: 176/81 Respiratory Rate: 16 Pulse Ox: 100 Oxygen Delivery Method: Room Air Airway Assessment Mouth opens: >3 cm Mallampati Score: III Teeth Condition: Caps/Crowns (Teeth #8 #9 are capped. They are tight.) Neck Range of motion (ROM): Full ROM Focused Labs Anesthesia Preop lab: CBC WBC 6.5 K/mm3 (4.4-11.0) 06/21/24 08:12 06/21/24 RBC 4.76 M/mm3 (4.6-6.2) 06/21/24 08:12 06/21/24 Hgb 15.0 g/dL (13.0-16.5) 06/21/24 08:12 06/21/24 Hct 44.5 % (40-54) 06/21/24 08:12 06/21/24 Plt Count 205 K/mm3 (150-450) 06/21/24 08:12 06/21/24 CHEMISTRY Potassium 4.0 mmol/L (3.5-5.1) 06/21/24 08:12 06/21/24 Sodium 140 mmol/L (136-145) 06/21/24 08:12 06/21/24 Magnesium 2.1 mg/dL (1.6-2.6) 11/25/19 16:28 11/25/19 BUN 15 mg/dL (7-18) 06/21/24 08:12 06/21/24 Creatinine 1.05 mg/dL (0.70-1.30) 06/21/24 08:12 06/21/24 Glucose 104 mg/dL (74-106) 06/21/24 08:12 06/21/24 TSH 2.36 uIU/mL (0.358-3.74) 07/11/20 08:36 07/11/20 COAG Pre-Assessment Diagnosis/Proposed Procedure Planned Operative Procedure(s): (R) Microlaryngoscopy excision vocal cord lesion Anesthesia History 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 When Was Last Pacemaker Check QUESTION #4 FULL TEXT: You/Your Family Experience fever (hyperthermia) with Anesthesia Last Oral Intake Last Oral intake: Last Oral Intake NPO since 19:00 06/29/24 10:57 Meds taken in AM with sips of No 06/29/24 10:57 water? Meds patient instructed to take am of surgery PONV PONV - rural health consultant: PONV - rural health consultant Female No 06/16/24 13:39 HX of Motion Sickness No 06/16/24 13:39 HX of N/V After Surgery No 06/16/24 13:39 Non-Smoker No 06/16/24 13:39 Duration of Surgery greater No 06/16/24 13:39 than 60 minutes Number of Risk Factors PONV Score Height & Weight Height & Weight: Anesthesia: Height & Weight Height 6 ft 5 in 06/29/24 10:57 Weight: 107 kg 06/29/24 10:57 Body Mass Index (BMI) 27.9 06/29/24 10:57 Respiratory Assessment Respiratory Assessment - rural health consultant: Respiratory Tract Infection Hx - rural health consultant Hx Respiratory Tract Infection No 06/16/24 13:39 STOP Sleep Apnea STOP Sleep Apnea - rural health consultant: STOP Sleep Apnea - rural health consultant Hx Hypertension Yes: CONTROLLED WITH MEDS 06/16/24 13:39 Hx Sleep Apnea No 06/16/24 13:39 CPAP BIPAP Do you snore loudly (louder No 06/16/24 13:39 than talking or can be heard Do you often feel tired/ No 06/16/24 13:39 fatigued/ sleepy during daytime? Has anyone observed you stop No 06/16/24 13:39 breathing during sleep? STOP Results Negative 06/16/24 13:39 QUESTION #5 FULL TEXT : Do you snore loudly (louder than talking or can be heard through closed doors)? 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 Specify any problems Hx of Preganancy in last 3 N/A 06/16/24 13:39 Months Nurse Filling Out Transfusion NBUCHER 06/16/24 13:39 & Questions: Date: 06/16/24 06/16/24 13:39 Time: 13:40 06/16/24 13:39 Patient unable to answer at this time (ie. 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: /Reproductive Hx- rural health consultant Hx Now Gestational Age (in weeks): EDC: Hx Hx Para Hx Section SAB Active Medications Active Medications: Current Medications Generic Name Dose Route Start Last Admin Trade Name Freq PRN Reason Stop Dose Admin Sodium Chloride 1,000 mls @ 15 mls/hr 06/29/24 10:45 06/29/24 11:00 IV 07/05/24 00:04 15 mls/hr .Q48H JACQUES Administration Protocol PFSH Medical History Vocal cord ulcer Wears hearing aid Wears contact lenses Gastric reflux Smoker History of stress test History of echocardiogram Cardiology follow-up encounter Infected sebaceous cyst Multiple premature ventricular complexes Boil of buttock 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 (09/28/11) Hyperlipidemia Essential (primary) hypertension Atherosclerosis of [place] coronary artery of [place] heart without angina pectoris Home Medications ?Medication ?Instructions ?Recorded ?Last Taken ?Type aspirin 81 mg tablet,delayed 81 mg PO QDAY 11/12/17 06/22/24 History release (Adult Aspirin Regimen) nitroglycerin 0.4 mg sublingual 0.4 mg sublingual Q5-15M PRN chest 11/12/17 Unknown History tablet pain pravastatin 40 mg tablet 40 mg PO DAILY #90 tabs 01/27/24 Unknown Rx lisinopril 40 mg tablet 40 mg PO DAILY #90 TABLETS 03/16/24 Unknown Rx esomeprazole magnesium 20 mg 20 mg PO DAILY 05/28/24 Unknown History capsule,delayed release (Nexium) Allergy/AdvReac Type Severity Reaction Status Date / Time Penicillins Allergy Unknown Verified 06/29/24 10:56 Family History Father Hypertension Mother Hypertension Colon cancer Surgical History (Updated 06/16/24 @ 13:42 by Maylin Darling) History of esophagogastroduodenoscopy (EGD) History of colonoscopy Cyst on ear History of coronary artery stent placement (09/28/11) Social History Smoking Status: Current every day smoker tobacco type: cigarettes second hand exposure: No alcohol intake: never substance use type: does not use caffeine: Yes Type: carbonated beverages Number of servings: 1 what type of physical activity do you participate in: none frequency: does not exercise Review of Systems (Anesthesia) ROS Narrative System reviewed and no additional complaints, except as documented.
--- NOTE | 2024-06-29 12:15 | VOCOB_PTH ---
PATIENT: ELMER SAAVEDRA [place] [facility] [place][id number] AGE/SX: 64/M ROOM: RE06/29/[address]: Dr. Asael Santoyo MD : 1960 BED: DIS: 06/29/2024 SPEC #: [id number] RECD: 06/29/24 13:57 STATUS: DAVY REReal #: [id number] JUSTIN: 06/29/24 12:[address]: Asael Santoyo DEPT: SURGICAL PATHOLOGY RECD BY: Terri Humphrey ENTERED: 06/29/24 14:05 SP TYPE: VOCAL CORD OTHR DR: Sanam Diaz MD Tissues: Vocal cord, NOS Procedures: Surgery Specimen Level IV HEADER OPERATION: Microlaryngoscopy excision left vocal cord lesion PRE-OP DIAGNOSIS: Gastro-esophageal reflux disease without esophagitis, leukokerarosis vocal cord TISSUE SUBMITTED: Left vocal cord mass MICROSCOPIC DIAGNOSIS Left vocal cord mass, excision: Fragments of benign vocal cord polyp with hyperkeratosis. Negative for malignancy. See comment. 06/30/2024 COMMENT Clinical correlation and appropriate follow up are necessary. Case has been reviewed in consultation with Dr. Huddleston who concurs with the above diagnosis. IDC:[email or web address] MICROSCOPIC DESCRIPTION Slides are reviewed. GROSS DESCRIPTION Received in fixative is one container labeled with the patient's name and designated Left vocal cord mass. The specimen consists of two fragments of vergara soft tissue that in aggregate measure 0.3 x 0.2 x 0.1cm. The entire specimen is submitted in one cassette. 06/29/2024 TC:5 CPT:65436
--- NOTE | 2024-06-29 13:03 | PCM.DC ---
Discharge Instructions Diet Discharge Diet: No restrictions DC O2, CPAP, BIPAP needs Home O2 Discharge instructions: No Dressing / Incision Discharge Activity: Return to Normal Activity Dressing / Incision Call your doctor if your incision/area has: Increased Pain/ Swelling Follow Up Care Please Follow Up With: Asael Santoyo MD When: 1 week Test Results: Test results from this visit will be discussed in further detail at your follow-up appointment, if applicable. Discharge Plan Admission Attending Provider: Asael Santoyo Primary Care Provider: Sanam Diaz Instructions Print Language: Citizen Of [place] Discharge Orders/Prescriptions Prescriptions: No Action nitroglycerin 0.4 mg tablet, sublingual 0.4 mg SUBLINGUAL Q5-15M PRN (Reason: chest pain) aspirin [Adult Aspirin Regimen] 81 mg tablet,delayed release (DR/EC) 81 mg PO QDAY lisinopril 40 mg tablet 40 mg PO DAILY Qty: 90 3RF esomeprazole magnesium [Nexium] 20 mg capsule,delayed release(DR/EC) 20 mg PO DAILY pravastatin 40 mg tablet 40 mg PO DAILY Qty: 90 3RF Other Ambulatory Orders: 12 Lead EKG (Routine) Timeframe: 20240621 Location: None Selected Ordered By: Dr. Asael Santoyo Referrals / Follow Up: Sanam Diaz MD [Primary Care Provider] - Disposition Disposition (needs filled in before D/C Order can be placed): Home, Self Care
--- NOTE | 2024-06-29 13:03 | PCM.OPRPT ---
Problems Associated Problem List Diagnoses (1) Vocal cord mass: Operative Report (Standard) Operative Information Date of Procedure: 06/29/24 Pre-Operative Diagnosis: left vocal cord mass Post-Operative Diagnosis: left vocal cord mass Surgery/Procedure Performed: direct laryngoscopy with excision left vocal cord mass, use of operative telescope increment manager: No Type of Anesthesia: General RN Documented Start/Stop Times: Operation Date: 06/29/24 12:15 Case Time Into Pre-Op 06/29/24 10:41 Out of Pre-Op 06/29/24 12:49 Procedure Start Time: 13:00 Procedure Stop Time: 13:20 Select all DRAINS/GRAFTS/IMPLANTS that apply: None Estimated Blood Loss: 0 Specimen collected: Yes Description of specimen(s) removed: left mid cord vocal cord mass Description of surgery: on the day of the procedure after appropriate informed consent was obtained, the patient was brought to the operating room and placed in supine position on the operating table. he was placed under general endotracheal anesthesia by the anesthesiologist. the endotracheal tube was secured, the eyes were taped. the table was rotated 90 degrees toward the surgeon. a tooth guard was placed. the suzanne laryngoscope was placed in the oral cavity with care not to damage the lips, teeth or gums. once a glottic view was obtained, it was suspended from the guerrero. the zero degree telescope was inserted; his anatomy was very favorable for examination. the 3mm leukoplakic lesion was on the patient's left vocal cord (previously documented as a right mass). the entirety of the right vocal cord was completely clean and clearly examined. an upgoing biting forceps were used to excise the left mid-cord lesion lesion in full. hemostasis was achieved with an afrin pledget, which was removed. he was awoken from anesthesia and transferred to the PACU in stable condition. Surgical Findings: left vocal cord leukoplakia Complications Complications: No
[2024-06-29] MEDS: Oxymetazoline 0.05% 1 SPRAY SPRAY.BTL 15 SPRAY (13:18)
--- NOTE | 2024-06-29 13:33 | PCM.POST.ANE ---
Anesthesia: Postop Eval I Current Vital Signs Temperature: 97.5 F Pulse Rate: 83 Blood Pressure: 136/73 Respiratory Rate: 16 Pulse Ox: 97 Oxygen Delivery Method: Nasal Cannula Oxygen Flow Rate (L/min): 3 Assessment Airway patent: Yes Spontaneous unlabored respirations: Yes Mental status: Awake and Calm nausea: No Vomiting: No Anesthesia Complication: No Fluid Hydration Crystalloid volume administer (ml): 700 Total IV fluid infused: 700 Progress Note Anesthesia document: Postop Eval 1 completed: Yes
--- NOTE | 2024-06-29 18:52 | POSTOPAN2_ITS ---
Anesthesia Postop Eval I Sum Postop Eval Completion status Anesthesia document: Postop Eval 1 completed: Yes Anesthesia Postop Eval I Summary Anesthesia Postop Eval I Summary: Anesthesia Postop Eval I: Assessment Summary Airway patent Yes 06/29/24 13:34 [email or web address] Spontaneous unlabored Yes 06/29/24 13:34 [email or web address] respirations Mental status Awake,Calm 06/29/24 13:34 [email or web address] nausea No 06/29/24 13:34 [email or web address] Vomiting No 06/29/24 13:34 [email or web address] Anesthesia Postop Eval I: Fluid Summary Crystalloid volume administer 700 06/29/24 13:34 [email or web address] (ml) Colloids volume administered ( ml) Blood Product volume administered (ml) Total IV fluid infused 700 06/29/24 13:34 [email or web address] Anesthesia Postop Eval I: Summary Notes Anesthesia Complication No 06/29/24 13:34 [email or web address] Anesthesia Complication Comment: Post-operative progress note Anesthesia: Postop Eval II Evaluation Mental status: Awake and Calm Pain Level: 1 nausea: No Vomiting: No Complications Anesthesia Complication: No
--- NOTE | 2024-06-29 18:52 | PCM.POSTANE2 ---
Anesthesia Postop Eval I Sum Postop Eval Completion status Anesthesia document: Postop Eval 1 completed: Yes Anesthesia Postop Eval I Summary Anesthesia Postop Eval I Summary: Anesthesia Postop Eval I: Assessment Summary Airway patent Yes 06/29/24 13:34 [email or web address] Spontaneous unlabored Yes 06/29/24 13:34 [email or web address] [email or web address] respirations Mental status Awake,Calm 06/29/24 13:34 [email or web address] [email or web address] nausea No 06/29/24 13:34 BEAN [email or web address] Vomiting No 06/29/24 13:34 [email or web address] Anesthesia Postop Eval I: Fluid Summary Crystalloid volume administer 700 06/29/24 13:34 [email or web address] (ml) Colloids volume administered ( ml) Blood Product volume administered (ml) Total IV fluid infused 700 06/29/24 13:34 [email or web address] Anesthesia Postop Eval I: Summary Notes Anesthesia Complication No 06/29/24 13:34 [email or web address] Anesthesia Complication Comment: Post-operative progress note Anesthesia: Postop Eval II Evaluation Mental status: Awake and Calm Pain Level: 1 nausea: No Vomiting: No Complications Anesthesia Complication: No
== END 2024-06-29 14:24 | disposition home or self-care (01) ==
LOC: SDC 10:37 → AC 10:38
PROVIDERS: PCP Family Medicine; Referring Provider Otolaryngology; Visit Provider Otolaryngology
PROC: 0CJS8ZZ Inspection of Larynx, Via Natural or Artificial Opening Endoscopic (ICD-10-PCS; CPT 31575; principal; 2024-06-29 12:10)
DX: J38.1 Polyp of vocal cord and larynx (principal); I25.2 Old myocardial infarction; I25.10 Atherosclerotic heart disease of native coronary artery without angina pectoris; I10 Essential (primary) hypertension; E78.00 Pure hypercholesterolemia, unspecified; F17.200 Nicotine dependence, unspecified, uncomplicated; K21.9 Gastro-esophageal reflux disease without esophagitis; Z79.899 Other long term (current) drug therapy; Z79.82 Long term (current) use of aspirin; Z95.5 Presence of coronary angioplasty implant and graft
CPT/HCPCS: 31541; 00320; 36415; 80048; 85027; 88305; 93005; J2405

== ENCOUNTER → 2025-03-23 | Outpatient (CLI) | payer BC, SELFPAY ==
[2025-03-23 10:51] LABS: AST(SGOT) 27 U/L (<=37); Alanine Aminotransfer ALT/SGPT 23 U/L (<=46); Albumin, Serum 4.4 g/dL (3.4-4.8); Alkaline Phosphatase 66 U/L (40-129); Bilirubin, Direct 0.22 mg/dL (0.00-0.30); Cholesterol 127 mg/dL (<=200); Globulin 3.1 g/dL (2.2-4.2); Low Density Lipoprotein Calc. 75 mg/dL; Triglycerides 90 mg/dL; Very Low Density Lipoprotein 18 mg/dL (5-40); cholesterol:hdl ratio screen 3.72
== END | disposition home or self-care (01) ==
LOC: MTLAB 07:02
PROVIDERS: PCP Family Medicine; Referring Provider Nurse Practitioner Family; Visit Provider Nurse Practitioner Family
DX: E78.00 Pure hypercholesterolemia, unspecified (principal)
CPT/HCPCS: 36415; 80061; 80076